=== PATIENT | male | born 1995 | race African-American/Black ===

== ENCOUNTER 2017-09-14 21:47 | Emergency (ER) | payer OTHER ==
[~2017-09-14] VITALS: Ht 193 cm; Wt 90.7 kg
[2017-09-14 22:02] VITALS: Ht 193 cm; Wt 90.7 kg
[2017-09-15 00:14] VITALS: BP 130/73
== END 2017-09-15 00:14 | disposition home or self-care (01) ==
LOC: ED 21:47
DX: S86.091A Other specified injury of right Achilles tendon, initial encounter (principal); W50.0XXA Accidental hit or strike by another person, initial encounter; Y93.67 Activity, basketball; Y99.8 Other external cause status; Y92.89 Other specified places as the place of occurrence of the external cause

== ENCOUNTER 2018-08-31 08:51 | Emergency (ER) | payer OTHER ==
[~2018-08-31] VITALS: Ht 193 cm; Wt 93.0 kg
[2018-08-31 09:02] VITALS: BP 130/83; Ht 193 cm; Wt 93.0 kg
== END 2018-08-31 10:37 | disposition home or self-care (01) ==
LOC: ED 08:51
DX: J11.1 Influenza due to unidentified influenza virus with other respiratory manifestations (principal); Z98.890 Other specified postprocedural states
CPT/HCPCS: 87804